=== PATIENT | female | born 1955 | race Two or more races ===

== ENCOUNTER 2017-01-09 10:47 | Emergency (ER) | payer OTHER ==
[2017-01-09 11:24] LABS: BASOPHILS % (AUTO) 0.4 %; EOSINOPHILS # (AUTO) 0.1 10^3/uL (0.0-0.7); EOSINOPHILS % (AUTO) 1.5 %; HCT - HEMATOCRIT 39.4 % (37.0-47.0); HGB - HEMOGLOBIN 13.4 g/dL (12.0-16.0); LYMPHOCYTES # (AUTO) 2.1 10^3/uL (1.5-3.5); LYMPHOCYTES % (AUTO) 25.8 %; MEAN CORPUSCULAR HEMOGLOBIN 30.6 pg (27.0-31.0); MEAN CORPUSCULAR HGB CONC 33.9 g/dL (32.0-36.0); MEAN CORPUSCULAR VOLUME 90.3 fL (81.0-99.0); MEAN PLATELET VOLUME 7.3 fL (7.9-10.8); MONOCYTES # (AUTO) 0.6 10^3/uL (0.0-1.0); MONOCYTES % (AUTO) 7.5 %; NEUTROPHILS # (AUTO) 5.2 10^3/uL (1.5-6.6); NEUTROPHILS % (AUTO) 64.8 %; RED BLOOD COUNT 4.37 10^6/uL (4.20-5.40); RED CELL DISTRIBUTION WIDTH 12.5 % (12.0-15.0)
[2017-01-09 11:29] LABS: CALCIUM 9.2 mg/dL (8.5-10.3); CREATININE 0.6 mg/dL (0.4-1.0); POTASSIUM 3.8 mmol/L (3.5-5.0)
--- NOTE | 2017-01-09 11:58 | ED Physician Documentation ---
History of Present Illness - Stated complaint Stated Complaint: IRREG HB, DIZZY - Chief complaint Chief Complaint: Cardiac - Additonal information Additional information: hx from pt long hx palpitations last Nov had severe palp and was dizzy - came to ER - in afib - given meds and concerted - fup with Dr Uribe cardio Jase Rodriguez and had echo and 30 d monitor and is now on metoprolol an anticoag was not rec has been doing well on this med went to [place] for a and returned home about a week ago last night more severe palp and dizziness now sx are better again no leg pain or swelling no CP or SOA Review of Systems Constitutional: denies: Fever Throat: denies: Sore throat Cardiac: reports: Palpitations. denies: Chest pain / pressure Respiratory: denies: Dyspnea, Cough GI: denies: Abdominal Pain Musculoskeletal: denies: Extremity pain, Extremity swelling Endocrine: denies: Easy bruising / bleeding Immunocompromised: denies: Immunocompromised PD PAST MEDICAL HISTORY - Past Medical History Cardiovascular: Hypertension, Atrial fibrillation - Past Surgical History Past Surgical History: Yes /RN MANAGER: Hysterectomy - Present Medications Home Medications: Ambulatory Orders Medication Instructions Recorded Confirmed Potassium Chloride 10 meq PO DAILY 12/18/14 12/18/14 Metoprolol Tartrate 25 mg PO TID 06/30/16 01/09/17 - Allergies Allergies/Adverse Reactions: Allergies Allergy/AdvReac Type Severity Reaction Status Date / Time Sulfa (Sulfonamide Allergy Rash Verified 01/09/17 10:54 Antibiotics) - Social History Does the pt smoke?: No Smoking Status: Never smoker Does the pt drink ETOH?: No Does the pt have substance abuse?: No - Immunizations Immunizations are current?: Yes - POLST Patient has POLST: No PD ED PE NORMAL - Vitals Vital signs reviewed: Yes - General General: Alert and oriented X 3 - Neck Neck: Supple, no meningeal sign - Cardiac Cardiac: RRR - Respiratory Respiratory: No respiratory distress, Clear bilaterally - Abdomen Abdomen: Soft, Non tender - Extremities Extremities: No deformity, No tenderness to palpate, Normal ROM s pain - Neuro Neuro: Alert and oriented X 3, No motor deficit, Normal speech - Psych Psych: Normal mood Results - Vitals Vitals: Vital Signs - 24 hr 01/09/17 01/09/17 01/09/17 10:52 10:55 12:57 Temperature 36.6 C Heart Rate 63 58 L Respiratory 18 16 Rate Blood Pressure 169/70 H 132/71 H Blood Pressure 132/70 H [Right] O2 Saturation 97 99 Oxygen O2 Source Room air - EKG (time done) 1103 Rate: Rate (enter#) (60) Rhythm: NSR Intervals: Normal MD Ischemia: ST elevation c/w repol - Labs Labs: Laboratory Tests 01/09/17 01/09/17 01/09/17 11:07 11:07 11:07 WBC 8.0 RBC 4.37 Hgb 13.4 Hct 39.4 MCV 90.3 MCH 30.6 MCHC 33.9 RDW 12.5 Plt Count 325 MPV 7.3 L Neut # 5.2 Lymph # 2.1 Linn # 0.6 Eos # 0.1 Baso # 0.0 Absolute Nucleated RBC 0.00 Nucleated RBCs 0.0 D-Dimer Sodium 137 Potassium 3.8 Chloride 98 L Carbon Dioxide 32 Anion Gap 7.0 BUN 17 Creatinine 0.6 Estimated GFR (MDRD) 102 Glucose 99 Calcium 9.2 Phosphorus Magnesium Troponin I < 0.04 01/09/17 01/09/17 11:07 12:48 WBC RBC Hgb Hct MCV MCH MCHC RDW Plt Count MPV Neut # Lymph # Linn # Eos # Baso # Absolute Nucleated RBC Nucleated RBCs D-Dimer < 200.0 L Sodium Potassium Chloride Carbon Dioxide Anion Gap BUN Creatinine Estimated GFR (MDRD) Glucose Calcium 9.0 Phosphorus 4.3 Magnesium 2.8 Troponin I PD MEDICAL DECISION MAKING - ED course ED course: hx a fib sound liek a recurrent episode last night now resolved given recent travel palp raise slight concern for PE - feel unlikely as pt not SOA nor tachypenic and no leg swelling , will check d dimer but if neg do not feel CTPA needed also check lytes and trop Departure - Departure Disposition: Home, Self Care Clinical Impression: Intermittent atrial fibrillation Condition: Good Instructions: Atrial Fibrillation Dc Follow-Up: ROSSANA CHUN [Primary Care Provider] - [facility] [Provider Group] Comments: Your heart is back in a sinus rhythm Your electrolytes are fine The blood test for a heart attack is negative And the blood test to see if you developed a blood clot whole travelling was negative too So I think it is safe for you to go home today Continue your usual medications Follow up with your communication and outreach manager Dr Uribe Please follow up with your PMD about your blood pressure - it was high today
[2017-01-09 13:07] LABS: MAGNESIUM 2.8 mg/dL (1.7-2.8); PHOSPHORUS 4.3 mg/dL (2.5-4.6)
[2017-01-09 13:26] VITALS: BP 132/70
== END 2017-01-09 14:40 | disposition home or self-care (01) ==
LOC: ED 10:47
DX: I48.91 Unspecified atrial fibrillation (principal); I10 Essential (primary) hypertension
CPT/HCPCS: 36415; 80048; 82310; 83735; 84100; 84484; 85025; 85379; 93005; 93010; 99284

== ENCOUNTER 2021-07-16 01:41 | Outpatient (CLI) | payer MEDICARE, OTHER | END 2021-07-16 01:42 | disposition short-term general hospital (02) | LOC: EMS 01:41 | DX: I48.91 Unspecified atrial fibrillation (principal) | CPT/HCPCS: A0425; A0427 ==

== ENCOUNTER 2021-11-25 03:49 | Outpatient (CLI) | payer MEDICARE, OTHER | END 2021-11-25 03:50 | disposition EMS.NT | LOC: EMS 03:49 | DX: Z03.89 Encounter for observation for other suspected diseases and conditions ruled out (principal) ==

== ENCOUNTER 2021-12-15 02:43 | Outpatient (CLI) | payer MEDICARE, OTHER | END 2021-12-15 02:44 | disposition EMS.NT | LOC: EMS 02:43 | DX: R04.2 Hemoptysis (principal); Z79.01 Long term (current) use of anticoagulants ==